=== PATIENT | male | born 1940 | race Caucasian/White ===

== ENCOUNTER 2023-05-04 09:45 | Emergency (ER) | payer MEDICARE, SELFPAY ==
[2023-05-04 09:49] VITALS: BP 165/83; PULSE 99; RESP 18; TEMP 36.6; O2SAT 96
--- NOTE | 2023-05-04 10:22 | ED.GENADULT ---
HPI - General Adult General Chief complaint: Dental/Oral Stated complaint: Facial swelling Time Seen by Provider: 05/04/23 09:57 History of Present Illness HPI narrative: 82-year-old male presented to the ED for evaluation of right jaw pain. And some right jaw swelling. Patient states symptoms have been ongoing for the last week. Patient initially presented to the [facility] urgent care but was referred to the emergency department for further evaluation. Patient reports jaw pain facial swelling and pain that radiates to his right ear. Patient does have follow-up scheduled with a dentist tomorrow. Related Data Home Medications Medication Instructions Recorded Confirmed B-complex with vitamin C 1 tablet PO DAILY 05/23/22 05/23/22 aspirin 81 mg tablet,delayed 81 mg PO DAILY 05/23/22 05/23/22 release (Adult Aspirin Regimen) enalapril maleate 5 mg tablet 5 mg PO DAILY 05/23/22 05/23/22 finasteride 5 mg tablet 5 mg PO DAILY 05/23/22 05/23/22 metoprolol succinate 25 mg 12.5 mg PO DAILY 05/23/22 05/23/22 tablet,extended release 24 hr rosuvastatin 20 mg tablet 20 mg PO DAILY 05/23/22 05/23/22 tamsulosin 0.4 mg capsule 0.4 mg PO DAILY 05/23/22 05/23/22 vitamins A,C,O-xhbn-rmykhi 4,296 1 cap PO QAM AND QPM 05/23/22 05/23/22 mcg-226 mg-90 mg capsule (ICaps AREDS) Allergies Allergy/AdvReac Type Severity Reaction Status Date / Time NKDA Allergy Mild none Uncoded 05/23/22 11:43 Review of Systems Review of Systems: All systems reviewed & are unremarkable except as noted in HPI and below PMFSH Family History Family History Father Hypertension Social History Social History Smoking status: Never smoker Alcohol intake: never Substance use: never Exam Narrative: APPEARANCE: Well appearing, no pain, no distress, well-nourished. HEAD: normocephalic, atraumatic. EYES: PERRLA/EOMI, conjunctivae clear. Mouth: Draining abscess along the right lower gumline NOSE: Normal no drainage EARS:TMS clear with good light reflex. THROAT: Pharynx clear, no exudate. NECK: Supple. No adenopathy, no masses. No submandibular swelling and no tenderness of the throat RESPIRATORY: Airway patent, respirations nonlabored. Clear to auscultation bilaterally, no rales, rhonchi, wheezing. CARDIOVASCULAR: Regular rate and rhythm without murmurs rubs or gallops. ABDOMINAL: Soft, nontender, nondistended, normal bowel sounds MUSCULOSKELETAL: Moves all extremities. Strength/ROM intact, No edema, No calf tenderness. NEURO: Alert. Cranial nerves II through XII intact. Grossly intact SKIN: Warm, dry. Normal Color Course Course Emergency Course: 82-year-old male presented ED for evaluation of right-sided facial swelling. No submandibular swelling no difficulty breathing swallowing or trismus. Low concern for Karen's angina. Patient does have an abscess that is currently draining. Patient was started on Augmentin in the ED and discharged home with Augmentin. Patient was encouraged to take probiotics. Patient does have follow-up scheduled with his dentist tomorrow. Vital Signs Vital signs: Vital Signs Temperature 98 F 05/04/23 09:49 Pulse Rate 99 05/04/23 09:49 Respiratory Rate 18 05/04/23 09:49 Blood Pressure 165/83 H 05/04/23 09:49 Pulse Oximetry 96 05/04/23 09:49 Oxygen Delivery Room Air 05/04/23 09:49 Temperature 98 F 05/04/23 09:49 Pulse Rate 99 05/04/23 09:49 Respiratory Rate 18 05/04/23 09:49 Blood Pressure 165/83 H 05/04/23 09:49 Pulse Oximetry 96 05/04/23 09:49 Oxygen Delivery Room Air 05/04/23 09:49 Medical Decision Making Differential Diagnosis Differential Diagnosis: Dental abscess, dental carry Vital Signs Vital Signs: Vital Signs Temperature 98 F 05/04/23 09:49 Pulse Rate 99 05/04/23 09:49 Respiratory Rate 18 05/04/23 09:49 Blood Pressure 165
[2023-05-04] MEDS: AMOXICILLIN/CLAVULANATE K 875-125 MG TAB 1 TABLET PO (10:41)
== END 2023-05-04 10:56 | disposition home or self-care (01) ==
PROVIDERS: Emergency Provider Emergency Medicine
DX: K04.7 Periapical abscess without sinus (principal); Z79.82 Long term (current) use of aspirin
CPT/HCPCS: 99283; A9270

== ENCOUNTER 2024-07-11 10:21 | Emergency (ER) | payer MEDICARE, SELFPAY ==
--- NOTE | ~2024-07-11 | CT_ITS ---
EXAMINATION: CTA chest PE abdomen pel DATE: 07/11/2024 11:59 INDICATION: Pleuritic chest pain. TECHNIQUE: Computed tomography angiography (CTA) of the chest was performed with 100 mL Omnipaque-350 intravenous contrast timed to evaluate the pulmonary arteries. Coronal maximum intensity projection 3D-reconstructions were created by the technologist. Computed tomography (CT) of the abdomen and pelv is was performed with intravenous contrast. Automated exposure control and iterative reconstruction t echnique were employed. The dose-length product was 562.68 mGy-cm. COMPARISON: None. FINDINGS: CTA chest: There is mild atelectasis bilaterally. There is mild scarring in paraspinal right lower lo be. No pleural effusion. The heart size is normal. There are coronary artery calcifications. No peric ardial effusion. There is no pulmonary embolus. There are bridging endplate osteophytes at multiple l evels in the spine, consistent with diffuse idiopathic skeletal hyperostosis (DISH). CT abdomen and pelvis: The liver, gallbladder, spleen, pancreas, and adrenal glands are normal. There are cysts in the kidneys measuring up to 15 mm on the left. There are bilateral inguinal hernias con taining fat. There is diverticulosis of the colon without evidence of diverticulitis. There are no di lated loops of bowel. The appendix is normal. There are no pathologically enlarged lymph nodes. There is no free intraperitoneal fluid. There is thoracolumbar dextroscoliosis and severe lumbar spondylos is IMPRESSION: 1. No pulmonary embolus. 2. Bilateral inguinal hernias containing fat. Reviewed, dictated and finalized at location A. TING INSTALLER
--- NOTE | ~2024-07-11 | XR_ITS ---
EXAMINATION: XR chest 2V DATE: 07/11/2024 10:56 INDICATION: Chest pain. TECHNIQUE: Frontal and lateral views of the chest were obtained on 3 radiographs. COMPARISON: None. FINDINGS: There is no pneumonia, pleural effusion, or pneumothorax. The heart size is normal. IMPRESSION: 1. No acute cardiopulmonary disease. Reviewed, dictated and finalized at location A. .NET DEVELOPER
--- NOTE | ~2024-07-11 | US_ITS ---
EXAMINATION: US venous doppler [facility] DATE: 07/11/2024 11:51 INDICATION: Left calf swelling. TECHNIQUE: Grayscale ultrasound images without and with compression and Doppler ultrasound images of the left lower extremity veins were obtained. COMPARISON: None. FINDINGS: The visualized portions of left common femoral vein, profunda (deep) femoral vein, femoral vein, popl iteal vein, peroneal veins, posterior tibial veins, and greater saphenous vein outflow are patent. IMPRESSION: 1. No deep venous thrombosis. Reviewed, dictated and finalized at location A. FINISHING SUPERVISOR
[2024-07-11 10:19] VITALS: RESP 18; TEMP 36.4
--- NOTE | 2024-07-11 10:22 | ECG_ITS ---
Test Date: 2024-07-11 10:23:00 Measurements Intervals [place] Rate: 59 P: 37 [place]: 175 QRS: 35 QRSD: 121 T: 59 QT: 400 QTc: 396 Interpretive Statements SINUS BRADYCARDIA MODERATE INTRAVENTRICULAR CONDUCTION DELAY [110+ ms QRS DURATION] No previous ECG available for comparison Electronically Signed On 07-11-2024 12:17:21 RELEASE MANAGER by Darren Bartholomew M.D.
[2024-07-11 10:30] VITALS: BP 140/71; PULSE 58; RESP 20; O2SAT 100
[2024-07-11 10:32] LABS: Basophils Absolute Auto 0.1 K/mm3 (0.0-0.1); Basophils Percent Auto 0.5 % (0.2-1.2); Eosinophils Absolute Auto 0.1 K/mm3 (0-0.3); Eosinophils Percent Auto 1.2 % (0-4.4); Hematocrit 40.9 % (42.0-52.0); Hemoglobin 13.5 g/dL (14.0-18.0); Immature Granulocyte Absolute 0.04 K/mm3 (0.00-0.031); Immature Granulocyte Percent A 0.3 % (0-0.5); Lymphocytes Absolute Auto 1.17 K/mm3 (0.9-3.2); Mean Corpuscular Hemoglobin 33.2 pg (26-34); Mean Corpuscular Volume 100.5 fl (80-100); Mean Platelet Volume 9.8 fl (7.4-10.4); Monocytes Absolute Auto 0.5 K/mm3 (0.1-0.6); Monocytes Percent Auto 4.4 % (2.6-8.5); Neutrophils Absolute Auto 9.8 K/mm3 (1.3-6.7); Neutrophils Percent Auto 83.6 % (45.5-73.1); Platelet Count Result 156 k/mm3 (150-375); Red Blood Count 4.07 M/mm3 (4.6-6.20); Red Cell Distribution Width 13.4 % (11.5-14.5); White Blood Count 11.7 K/mm3 (4.5-10.0)
[2024-07-11 10:45] LABS: INR 1.1; Prothrombin Time 14.3 Seconds (11.1-14.7)
[2024-07-11 10:46] LABS: Partial Thromboplastin Time 25.3 Seconds (22.3-36.8)
[2024-07-11 10:47] LABS: Alanine Aminotransferase 29 U/L (6-50); Albumin Level 4.3 g/dL (3.5-5.1); Alkaline Phosphatase 62 U/L (38-126); Anion Gap 3 mmol/L (4-12); Aspartate Amino Transferase 33 U/L (17-59); Bilirubin,Total 0.7 mg/dL (0.2-1.3); Blood Urea Nitrogen 23 mg/dL (9-20); Calcium 9.9 mg/dL (8.4-10.2); Carbon Dioxide 29 mmol/L (22-30); Chloride 104 mmol/L (98-107); Estimated CRCL calculation 65 ml/min; Estimated Glomerular Filt Rate > 60; Glucose 141 mg/dL (65-110); Lipase 116 U/L (23-300); Potassium 4.4 mmol/L (3.4-5.0); Sodium 136 mmol/L (137-145)
[2024-07-11 10:59] LABS: Troponin I < 0.012 ng/mL (0.000-0.034)
--- NOTE | 2024-07-11 11:21 | ED_ITS ---
HPI - General Adult General Chief complaint: Chest Pain Stated complaint: cp Time Seen by Provider: 07/11/24 10:58 History of Present Illness HPI narrative: This is an 83-year-old male presenting with chest pain. Patient woke up this morning had a sharp pain in his lower sternal/upper abdomen area. The pain is nonradiating, 2/10 in intensity, improving. Patient has a history of a heart attack said that felt different was lower stomach morphine achy pain. 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 He is no longer on anticoagulation. Patient is denying fevers chills shortness of breath abdominal pain nausea vomiting or diarrhea. He did have some belching earlier. Related Data Home Medications Medication Instructions Recorded Confirmed B-complex with vitamin C 1 tablet PO DAILY 05/23/22 05/22/23 aspirin 81 mg tablet,delayed 81 mg PO DAILY 05/23/22 05/22/23 release (Adult Aspirin Regimen) enalapril maleate 5 mg tablet 5 mg PO DAILY 05/23/22 05/22/23 finasteride 5 mg tablet 5 mg PO DAILY 05/23/22 05/22/23 metoprolol succinate 25 mg 12.5 mg PO DAILY 05/23/22 05/22/23 tablet,extended release 24 hr rosuvastatin 20 mg tablet 20 mg PO DAILY 05/23/22 05/22/23 tamsulosin 0.4 mg capsule 0.4 mg PO DAILY 05/23/22 05/22/23 vitamins A,C,O-pwsp-ivsmwr 4,296 1 cap PO QAM AND QPM 05/23/22 05/22/23 mcg-226 mg-90 mg capsule (ICaps AREDS) Allergies Allergy/AdvReac Type Severity Reaction Status Date / Time No Known Drug Allergies Allergy Verified 07/11/24 13:07 [facility] Family History Family History Father Hypertension Social History Social History Smoking status: Never smoker Alcohol intake: never Substance use: never Lack of Transportation: No Lack of Food: Never True Current Housing: I Have Housing Concerned About Future Housing: No Difficulty Paying Gas/Electric Bills: No Difficulty Paying for Meds: No Currently Unemployed: No Education: Bachelor's Degree Difficulty w/ Childcare or Family Care: No Exam Narrative: APPEARANCE: No apparent distress. Head: atraumatic. EYES: EOMI, NOSE: Atraumatic NECK: Trachea midline RESPIRATORY: No increased rate of breathing, clear to auscultation CARDIOVASCULAR: RRR, left calf is mildly swollen compared to the right ABDOMINAL: Non-distended soft nontender MUSCULOSKELETAl: No obvious deformities NEURO: Alert. Moving 4/4 extremities SKIN:: Warm, dry. Normal color PSYCHIATRIC: Normal affect Course Vital Signs Vital signs: Vital Signs Temperature 97.6 F 07/11/24 10:19 Respiratory Rate 18 07/11/24 10:19 Temperature 97.6 F 07/11/24 10:19 Pulse Rate 85 07/11/24 13:22 Respiratory Rate 16 07/11/24 13:22 Blood Pressure 162/67 H 07/11/24 13:22 Pulse Oximetry 99 07/11/24 13:22 Oxygen Delivery Room Air 07/11/24 10:20 Medical Decision Making MDM Narrative Medical decision making narrative: -Course: A 3-year-old male presenting ED with pleuritic chest pain. Extensive workup including chest x-ray, EKG troponin x2, CTA chest abdomen pelvis were all negative. Patient's pain seems improved after some Maalox. Pain is atypical and is not cardiac in nature. Patient will be discharged to follow-up with his primary care physician for further management. Given return precautions. -DDX includes but is not limited to: PE, gastritis, ACS pleurisy -Co-morbidities complicating care: History of DVT/PE, coronary artery disease -Independent interpretation of studies: Labs and imaging reviewed Independent EKG interpretation: Rhythm [sinus], Rate [59], [place] -[normal], [place] -[normal], QRS [narrow], QTC [normal], T waves -[negative for concerning inversions], ST Segments - [Negative for concerning elevations] Final interpretations: Sinus bradycardia -Interventions: Maalox -Shared decision making / Disposition: Discharge -RX Pepcid Vital Signs Vital Signs: Vital Signs Temperature 97.6 F 07/11/24 10:19 Respiratory Rate 18 07/11/24 10:19 Temperature 97.6 F 07/11/24 10:19 Pulse Rate 85 07/11/24 13:22 Respiratory Rate 16 07/11/24 13:22 Blood Pressure 162/67 H 12/01/24 13:22 Pulse Oximetry 99 07/11/24 13:22 Oxygen Delivery Room Air 07/11/24 10:20 Lab Data 07/11/24 10:26 07/11/24 10:26 Labs: Lab Results 07/11/24 07/11/24 Range/Units 10:26 13:17 WBC 11.7 H (4.5-10.0) K/mm3 RBC 4.07 L (4.6-6.20) M/mm3 Hgb 13.5 L (14.0-18.0) g/dL Hct 40.9 L (42.0-52.0) % MCV 100.5 H (80-100) fl MCH 33.2 (26-34) pg MCHC 33.0 (32-36) g/dl RDW 13.4 (11.5-14.5) % Plt Count 156 (150-375) k/mm3 MPV 9.8 (7.4-10.4) fl Immature Gran % (Auto) 0.3 (0-0.5) % Neut % (Auto) 83.6 H (45.5-73.1) % Lymph % (Auto) 10.0 L (18.3-44.2) % [place] % (Auto) 4.4 (2.6-8.5) % Eos % (Auto) 1.2 (0-4.4) % Baso % (Auto) 0.5 (0.2-1.2) % Lymph # (Auto) 1.17 (0.9-3.2) K/mm3 [place] # (Auto) 0.5 (0.1-0.6) K/mm3 Eos # (Auto) 0.1 (0-0.3) K/mm3 Baso # (Auto) 0.1 (0.0-0.1) K/mm3 Abs Immat Gran (auto) 0.04 H (0.00-0.031) K/mm3 Absolute Neuts (auto) 9.8 H (1.3-6.7) K/mm3 Absolute Nucleated RBC 0.000 (0.0-0.012) K/mm3 Nucleated RBC % 0.0 (0.0-0.2) % PT 14.3 (11.1-14.7) Seconds INR 1.1 APTT 25.3 (22.3-36.8) Seconds Sodium 136 L (137-145) mmol/L Potassium 4.4 (3.4-5.0) mmol/L Chloride 104 (98-107) mmol/L Carbon Dioxide 29 (22-30) mmol/L Anion Gap 3 L (4-12) mmol/L BUN 23 H (9-20) mg/dL Creatinine 0.80 (0.7-1.3) mg/dL Estim Creat Clear Calc 65 ml/min Estimated GFR > 60 (59 - ) Glucose 141 H (65-110) mg/dL Calcium 9.9 (8.4-10.2) mg/dL Total Bilirubin 0.7 (0.2-1.3) mg/dL AST 33 (17-59) U/L ALT 29 (6-50) U/L Alkaline Phosphatase 62 (38-126) U/L Troponin I < 0.012 < 0.012 (0.000-0.034) ng/mL NT-Pro-B Natriuret Pep 269 H (19.9-100) pg/mL Total Protein 7.0 (6.3-8.2) g/dL Albumin 4.3 (3.5-5.1) g/dL Lipase 116 (23-300) U/L Discharge Plan Discharge Clinical Impression: Atypical chest pain Patient Disposition: Home, Self-Care Condition: Stable Instructions: Antibiotic Form, Chest Pain (DC) Additional Instructions: You were seen in the emergency department for chest pain/epigastric abdominal pain. Your workup here was negative without a definitive cause. You noted some improvement with Maalox so we can trial a course of Pepcid to see if that improves yourr symptoms. Please follow-up with your primary care physician for further management. You can return to the ED at any time if you develop severe chest pain, difficulty breathing, or any new or worsening symptoms. Prescriptions: New famotidine [Pepcid] 20 mg tablet 20 mg PO BID 42 Days Qty: 84 0RF No Action rosuvastatin 20 mg tablet 20 mg PO DAILY enalapril maleate 5 mg tablet 5 mg PO DAILY metoprolol succinate 25 mg tablet extended release 24 hr 12.5 mg PO DAILY finasteride 5 mg tablet 5 mg PO DAILY tamsulosin 0.4 mg capsule 0.4 mg PO DAILY aspirin [Adult Aspirin Regimen] 81 mg tablet,delayed release (DR/EC) 81 mg PO DAILY ICaps AREDS [id number],320-226-200 [id number] capsule 1 cap PO QAM AND QPM B-complex with vitamin C Tablet 1 tablet PO DAILY Follow-up/Referrals: [place],Litzy West MD [Primary Care Provider] -
[2024-07-11 11:43] LABS: NT Pro B Type Natriuretic Pept 269 pg/mL (19.9-100)
--- NOTE | 2024-07-11 13:11 | ECG_ITS ---
Test Date: 2024-07-11 13:16:10 Measurements Intervals [place] Rate: 66 P: 50 [place]: 191 QRS: 37 QRSD: 122 T: 65 QT: 396 QTc: 415 Interpretive Statements SINUS RHYTHM MODERATE INTRAVENTRICULAR CONDUCTION DELAY [110+ ms QRS DURATION] ABNORMAL ECG Electronically Signed On 07-12-2024 08:52:08 RAM PRESS OPERATOR by Chris Hargrove M.D.
[2024-07-11] MEDS: ACETAMINOPHEN 500 MG TABLET 1000 MG PO (13:19)
[2024-07-11] MEDS: MAG HYDROX/AL HYDROX/SIMETH 30 ML UDC PO (13:19)
[2024-07-11 13:22] VITALS: BP 162/67; PULSE 85; RESP 16; O2SAT 99
[2024-07-11 13:45] LABS: Troponin I < 0.012 ng/mL (0.000-0.034)
[2024-07-11 14:30] VITALS: BP 145/68; PULSE 63; RESP 16; O2SAT 98
== END 2024-07-11 14:32 | disposition home or self-care (01) ==
PROVIDERS: Student in an Organized Health Care Education/Training Program; Emergency Provider Emergency Medicine; PCP Internal Medicine
DX: R07.89 Other chest pain (principal); Z79.82 Long term (current) use of aspirin; Z86.718 Personal history of other venous thrombosis and embolism; Z86.711 Personal history of pulmonary embolism
CPT/HCPCS: 36415; 71046; 71275; 74177; 80053; 83690; 83880; 84484; 85025; 85610; 85730; 93005; 93971; 99284; A9270; Q9967